=== PATIENT | male | born 1935 | race Caucasian/White ===

== ENCOUNTER 2018-08-01 10:00 | Inpatient (IN) | payer OTHER ==
[~2018-08-01] VITALS: Ht 170.2 cm; Wt 53.6 kg
[2018-08-01 10:46] LABS: ABSOLUTE BASOPHIL COUNT 0 /CUMM (0.0-0.2); ABSOLUTE EOSINOPHIL COUNT 0.3 /CUMM (0.0-0.7); ABSOLUTE GRANULOCYTE CT 2.6 /CUMM (1.4-6.5); ABSOLUTE LYMPH COUNT 0.9 /CUMM (1.2-3.4); ABSOLUTE MONOCYTE COUNT 0.5 /CUMM (0.10-0.60); BASOPHIL % 0 % (0.0-2.0); EOSINOPHIL % 6.1 % (0-5); GRANULOCYTE % 60.5 % (42.2-75.2); HEMATOCRIT 31.6 % (42-52); MEAN CORPUSCULAR HGB 26.2 PG (27.0-31.0); MEAN CORPUSCULAR HGB CONC 31.9 G/DL (33.0-37.0); MEAN CORPUSCULAR VOLUME 82.2 FL (80.0-94.0); MEAN PLATELET VOLUME 8.3 FL (7.4-10.4); PLATELET COUNT 180 /CUMM (130-400); RED BLOOD CELL CT 3.85 /CUMM (4.70-6.10); WHITE BLOOD CELL COUNT 4.3 /CUMM (4.8-10.8)
--- NOTE | 2018-08-01 11:19 | ED DYSPNEA/ASTHMA COMPLAINT ---
History of Present Illness General Chief Complaint: Dyspnea (COPD, CHF, Other) Stated Complaint: SOB Source: patient, family (DAUGHTER) Exam Limitations: no limitations Vital Signs & Intake/Output Vital Signs & Intake/Output Vital Signs Date Time Temp Pulse Resp B/P B/P Pulse O2 O2 Flow FiO2 Mean Ox Delivery Rate 08/01 1459 98/56 08/01 1409 97.0 80 20 105/72 96 Room Air 08/01 1335 78 102/57 08/01 1250 96.9 74 16 108/60 92 Room Air 08/01 1221 98.0 70 91/57 08/01 1154 76 97/51 08/01 1115 78 94/64 08/01 1003 97.1 82 20 97/62 93 Room Air Allergies Coded Allergies: NO KNOWN ALLERGIES (09/19/13) MARTÍN CANALES IN IC ON 09/19/13 - S Triage Note: PT TO TRIAGE WITH HIS DAUGHTER, PT COMPLAINS OF INCREASED SOB AND WHEEZING, PT HAS HISTORY OF ASTHMA, DENIES COUGH Triage Nurses Notes Reviewed? yes Onset: Abrupt Duration: week(s): (1), constant, continues in ED, getting worse Timing: single episode today Severity: mild, moderate Activities at Onset: none Prior Episodes/Possible Cause: occasional episodes Associated Symptoms: wheezing, weakness HPI: 83-year-old male history of hyperlipidemia, asthma, GERD, osteoporosis presents for evaluation of shortness of breath and weakness. Patient reports he has felt short of breath for the past week. He states that it is worse when he tries to exert himself to the point with difficulty walking a few steps. He does report intermittent dry cough. He's been using his inhaler and nebulizer with minimal improvement. His daughter reports it seems like he has lost weight and appears much weaker and fatigued than usual. She also reports it appears he is working hard to breathe and is to. No recent surgery recent trauma hemoptysis chest pain or extremity edema history of heart failure fever. (Timothy Lara) Past History Travel History Traveled to [place] past 21 day No Medical History Any Pertinent Medical History? see below for history Neurological: NONE EENT: NONE Cardiovascular: hyperlipidemia Respiratory: asthma Gastrointestinal: GERD Hepatic: NONE Renal: NONE Musculoskeletal: osteoporosis Psychiatric: NONE Endocrine: hypothyroidism Surgical History Surgical History: non-contributory Psychosocial History What is your primary language Greek Tobacco Use: Never used ETOH Use: denies use Illicit Drug Use: denies illicit drug use Family History Hx Contributory? No (Timotyh Lara) Review of Systems Review of Systems Constitutional: Reports: malaise, weakness. EENTM: Reports: no symptoms. Respiratory: Reports: see HPI, short of breath, wheezing. Cardiovascular: Reports: no symptoms. GI: Reports: no symptoms. Genitourinary: Reports: no symptoms. Musculoskeletal: Reports: no symptoms. Skin: Reports: no symptoms. Neurological/Psychological: Reports: no symptoms. Hematologic/Endocrine: Reports: no symptoms. Immunologic/Allergic: Reports: no symptoms. All Other Systems: Reviewed and Negative (Timothy Lara) Physical Exam Physical Exam General Appearance: well developed/nourished, no apparent distress, alert, awake , cachetic, thin Head: atraumatic, normal appearance Eyes: Bilateral: normal appearance, PERRL, EOMI. Ears, Nose, Throat: normal pharynx, normal ENT inspection, hearing grossly normal Neck: normal inspection, supple, full range of motion Respiratory: chest non-tender, no respiratory distress, quiet respiration, decreased breath sounds, wheezing (mild end expiratory) Cardiovascular: regular rate/rhythm, normal peripheral pulses Peripheral Pulses: 2+ radial (R), 2+ radial (L) Gastrointestinal: normal bowel sounds, soft, no organomegaly, tenderness ( diffuse lower abdominal) Rectal: normal exam, normal rectal tone, heme negative stool Extremities: normal inspection, normal range of motion, no edema Neurologic/Psych: no motor/sensory deficits, awake, alert, oriented x 3, normal gait, normal mood/affect Skin: intact, normal color, warm/dry Lymphatic: no anterior cervical alistair Core Measures ACS in differential dx? No CVA/TIA Diagnosis No Sepsis Present: No Sepsis Focused Exam Completed? No (Timothy Lara) Progress Differential Diagnosis: asthma, AMI, bronchitis, costochondritis, CHF, COPD, musculoskeletal pain, pericarditis, pulmonary embolism, pneumonia, pneumothorax, rib fracture, unstable angina, malignancy Plan of Care: Orders Procedure Date/time Status Heart Healthy Diet 08/01 D Active ED Holding Orders 08/01 1508 Active Admit to inpatient 08/01 1508 Active Vital Signs 08/01 1508 Active Code Status 08/01 1508 Active Add-on Test (ER Only) 08/01 1346 Active URINALYSIS 08/01 1252 Complete Add-on Test (ER Only) 08/01 1129 Active Add-on Test (ER Only) 08/01 1106 Active PARTIAL THROMBOPLASTIN TIME 08/01 1039 Complete PROTHROMBIN TIME 08/01 1039 Complete LACTIC ACID 08/01 1039 Complete D-DIMER 08/01 1039 Complete B-TYPE NATRIURETIC PEP (BNP) 08/01 1039 Complete Add-on Test (ER Only) 08/01 1027 Active TROPONIN LEVEL 08/01 1012 Complete COMPREHENSIVE METABOLIC PANEL 08/01 1012 Complete CBC WITHOUT DIFFERENTIAL 08/01 1012 Complete EKG 08/01 1012 Active Current Medications Sig/Rosita Start time Last Medication Dose Stop Time Status Admin Heparin Sodium 25,000 UNIT Q24H 08/01 1415 UNVr 08/01 (Porcine) 1502 (Heparin) Sodium Chloride 500 ML Laboratory Tests 08/01/18 1304: Urine Color YEL, Urine Clarity CLEAR, Urine pH 6.0, Ur Specific [place] 1.025, Urine Protein NEG, Urine Ketones TRACE H, Urine Nitrite NEG, Urine Bilirubin NEG, Urine Urobilinogen 0.2, Ur Leukocyte Esterase NEG, Ur Microscopic EXAM NOT REQUIRED, Urine Hemoglobin NEG, Urine Glucose NEG 08/01/18 1039: Anion Gap 8, Estimated GFR > 60, BUN/Creatinine Ratio 58.3 H, Glucose 113 H, Lactic Acid 1.2, Calcium 9.7, Total Bilirubin 0.5, AST 30, ALT 33, Alkaline Phosphatase 61, Troponin I 0.07, Obg-X-Yajdvmvagnq Pept 442 H, Total Protein 7.2, Albumin 4.1, Globulin 3.1, Albumin/Globulin Ratio 1.3, PT 12.9 H, INR 1.18 H, APTT 25, D-Dimer High Sensitivty 2040 H, CBC w Diff NO MAN DIFF REQ, RBC 3.85 L, MCV 82.2, MCH 26.2 L, MCHC 31.9 L, RDW 16.0 H, MPV 8.3, Gran % 60.5, Lymphocytes % 21.6, Monocytes % 11.8 H, Eosinophils % 6.1 H, Basophils % 0, Absolute Granulocytes 2.6, Absolute Lymphocytes 0.9 L, Absolute Monocytes 0.5, Absolute Eosinophils 0.3, Absolute Basophils 0 Patient is here for evaluation of shortness of breath and weakness. On exam his vital signs are stable. Oxygen saturation has been as low as 93 while at rest. He's never been a smoker he has a history of asthma. He has grossly diminished breath sounds bilaterally with some slight wheezing. A DuoNeb and IV Solu- Medrol was ordered. Labs chest x-ray EKG ordered. Patient also has some lower abdominal pain. Scan his abdomen and pelvis was ordered. Blood work shows a significantly elevated d-dimer of 2000. Chest x-ray shows interstitial lung disease and atelectasis but cannot exclude pneumonia. A CTA will be obtained for further evaluatION. CTA is positive for a left subsegmental and left segmental pulmonary artery EMBOLI. No evidence of right heart strain. There is also significant pulmonary fibrosis. Rectal exam is negative for blood. There is some mild rectosigmoid colitis and proctitis. Patient will be heparinized and admitted to the hospital for further evaluation and treatment case discussed with Dr. Sarabia he agrees. Diagnostic Imaging: Viewed by Me: CT Scan. Discussed w/RAD: CT Scan. Radiology Impression: PATIENT: KIERSTEN HERNANDEZ PRESENT AGE: 83 PATIENT ACCOUNT NO: [id number] : 35 LOCATION: [facility] ORDERING PHYSICIAN: Timothy MCKEON SERVICE DATE: 08/01/18 EXAM TYPE: RAD - XRY- PORTABLE CHEST XRAY EXAMINATION: XR PORTABLE CHEST CLINICAL INFORMATION: Shortness of breath. Cough. Presumptive diagnosis of pneumonia, CHF. COMPARISON: Chest x-ray dated 06/23/2018 and rib films dated 11/03/2017. TECHNIQUE: Portable AP semierect view of the chest was obtained. FINDINGS: EKG leads overlie the chest. Cardiac silhouette is poorly assessed due to patient obliquity and extensive opacities throughout the left lung. Ectasia and tortuosity of the aorta is also seen. There are low lung volumes with diffuse bilateral reticular opacities seen, suspicious for diffuse chronic interstitial lung disease. When allowing for differences in technique, increasing volume loss in the left lung base is seen with patchy opacities, most likely related to atelectasis. However, subtle pneumonia cannot be excluded. No definite pulmonary edema is seen. There is likely a tiny left apical pneumothorax. Right basilar opacities are similar to the prior exam and likely due to atelectasis or scarring. Diffuse osteopenia is noted with an S-shaped thoracolumbar scoliosis and multilevel degenerative changes. IMPRESSION: 1. Interval development of tiny left apical pneumothorax. 2. Volume loss and new patchy opacities in the left lung base, likely due to atelectasis. However, pneumonia may have a similar appearance. Clinical correlation is requested. 2. Chronic reticular opacities right lung base, likely due to atelectasis or scarring. DICTATED BY: Bridget Wyatt MD DATE/TIME DICTATED:08/01/181128 CREDIT CLERK:EDMOND DATE/TIME TRANSCRIBED:1128 CONFIDENTIAL, DO NOT COPY WITHOUT APPROPRIATE AUTHORIZATION. < Electronically signed in Other Vendor System> SIGNED BY: Bridget Wyatt MD 08/01/18 1139, PATIENT: KIERSTEN HERNANDEZ PRESENT AGE: 83 PATIENT ACCOUNT NO: [id number] : 35 LOCATION: [facility] ORDERING PHYSICIAN: Timothy MCKEON SERVICE DATE: 08/01/18 EXAM TYPE: CAT - CT ABD & PELVIS W IV CONTRAST; CTA CHEST-PULMONARY EMBOLISM EXAMINATION: CT CHEST PE STUDY CT SCAN OF THE ABDOMEN AND PELVIS WITH CONTRAST CLINICAL INFORMATION: Cough, shortness of breath, weight loss. Presumptive diagnosis of PE, pneumonia, malignancy. Lower abdominal pain and right-sided lower back pain. Presumptive diagnosis of PE, pneumonia, malignancy, acute abdomen. COMPARISON: Chest x-ray dated 08/01/2018 , 06/23/2018. MRI scan of the lumbar spine dated 01/23/2011. TECHNIQUE: Prior to contrast administration, localization images were obtained. After the administration of 95 mL of intravenous Optiray 320, multidetector CT volume acquisition of the chest was performed. 3-D postprocessing was performed with multiplanar reconstructions and MIP images obtained at the acquisition workstation under concurrent physician supervision. DLP: 595.02 mGy-cm. FINDINGS : CT PULMONARY ANGIOGRAM: Pulmonary arteries: The bolus timing on this study was acceptable for visualization of the pulmonary arterial tree. The study is positive for pulmonary embolism. Small pulmonary emboli are seen in the right upper lobe segmental pulmonary artery (series 2, image 139) and in right lower lobe subsegmental pulmonary arteries (series 2, images 145 through 250). The pulmonary arteries are not enlarged and no significant reflux of contrast into the IVC or leftward bowing of the interventricular septum is seen to suspect right heart strain. Lungs: As seen on the plain film, there is a tiny left-sided pneumothorax. There is also a tiny right-sided pneumothorax. The lungs bilaterally demonstrate diffuse subpleural reticulation and scattered areas of subpleural honeycomb cyst formation, suspicious for underlying UIP, likely idiopathic pulmonary fibrosis. No dense consolidation is seen to suspect superimposed pneumonia. No significant pleural effusion is seen. There is marked enlargement of the tracheobronchial tree with diffuse bronchiectatic changes in the right more than left central lung. Aorta and heart: The heart is normal in size and shifted to the right side. The mediastinum, aorta and great vessels are normal. There is no pericardial effusion. Lymphatic structures: There is no lymphadenopathy. Bones: Mild dorsal kyphosis centered at the T9 level where near vertebral plana compression deformity of the vertebral body is seen, unchanged. CT ABDOMEN AND PELVIS: LIVER, GALLBLADDER, BILIARY TREE: Liver normal size and attenuation. No focal cystic or solid mass or intra-or extrahepatic ductal dilatation. Hepatic and portal veins patent. Gallbladder partially distended and within normal limits. PANCREAS: Normal. No ductal dilatation, mass, or surrounding stranding. SPLEEN: Normal size and appearance. Splenic vein patent. ADRENAL GLANDS AND KIDNEYS: Adrenal glands normal. Kidneys bilaterally symmetric in size and function. No focal mass, hydronephrosis, nephrolithiasis or perinephric stranding. URETERS AND BLADDER: Ureters decompressed and within normal limits. Bladder partially distended and within normal limits. PELVIC ORGANS: Prostate gland is enlarged and heterogeneous and poorly from adjacent bowel loops. GASTROINTESTINAL TRACT: Poorly assessed due to lack of intra-abdominal fat. Bowel loops are all clustered together. Small and large bowel loops decompressed. Appendix not seen. There may be subtle thickening and enhancement of the rectosigmoid colon. Bowel loops are otherwise grossly unremarkable. LYMPHOVASCULAR STRUCTURES: Abdominal aorta ectatic and with dense atherosclerotic calcifications, which also involve several of the branch vessels. No periaortic collections. No abdominal or pelvic adenopathy or free fluid collection. BONES: Diffuse osteopenia. Mild superior endplate compression of the L2 vertebral body is seen, unchanged from 01/23/2011. Minimal convex left lumbar scoliosis. Mild degenerative disc disease at L4-5 with disc space narrowing and vacuum disc phenomenon. Mild vertebral spondylosis in lower thoracic spine. IMPRESSION: 1. Positive pulmonary emboli seen in segmental and subsegmental pulmonary arteries as discussed above. 2. 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 No definite superimposed focal pneumonia seen. 3. Evaluation of bowel loops in the abdomen difficult. There may be wall thickening and enhancement in the rectosigmoid colon. This is a nonspecific finding and may be related to a colitis. Close clinical correlation and follow-up is requested. 4. Enlarged heterogeneous prostate gland. 5. Prominent atherosclerotic vascular disease. 6. Osteopenia with compression deformities in the T9 and L2 vertebral bodies, unchanged. This critical result was discussed with MIKE Sanchez 08/01/2018, 1:45 PM and it was ascertained that the content and urgency of this report was understood at the time of direct communication. Initial ED EKG: normal sinus rhythm, RBBB (Timothy Lara) Departure Departure Disposition: STILL A PATIENT Condition: Stable Clinical Impression Primary Impression: Pulmonary embolism Qualifiers: Pulmonary embolism type: other Chronicity: acute Acute cor pulmonale presence: without acute cor pulmonale Qualified Code: I26.99 - Other pulmonary embolism without acute cor pulmonale Referrals: Antonio Lenz MD (PCP/Family) Departure Forms: Customer Survey General Discharge Information Admission Note Spoke With: Antonio Lenz MD Documentation of Exam: Documentation of any treatments & extenuating circumstances including Concerns Regarding Discharge (functional status, medication knowledge or non-compliance, living conditions, etc.) that warrant an admission rather than observation: [ Monitoring of vital signs, serial labs, pulmonology consult, IV steroids, IV heparin, hypercoagulability workup, DUO NEBS] (Timothy Lara) PA/HAT PRESSER Co-Sign Statement Statement: ED Attending supervision documentation- [X] I saw and evaluated the patient. I have also reviewed all the pertinent lab results and diagnostic results. I agree with the findings and the plan of care as documented in the PA's/HAT PRESSER's documentation. [] I have reviewed the ED Record and agree with the PA's/HAT PRESSER's documentation. [] Additions or exceptions (if any) to the PAs/HAT PRESSER's note and plan are summarized below: [] I saw and personally examined the patient and I agree with the PAs evaluation 83 -year-old male with difficulty breathing. He also had some lower abdominal pain. Lung exam revealed poor air entry. CTA reveals segmental and subsegmental pulmonary emboli. (Torey COWAN,Kerwin Forbes) Critical Care Note Critical Care Note Critical Care Time: non-applicable (Timothy Lara)
--- NOTE | 2018-08-01 11:39 | RADIOLOGY REPORT ---
EXAMINATION: XR PORTABLE CHEST CLINICAL INFORMATION: Shortness of breath. Cough. Presumptive diagnosis of pneumonia, CHF. COMPARISON: Chest x-ray dated 06/23/2018 and rib films dated 11/03/2017. TECHNIQUE: Portable AP semierect view of the chest was obtained. FINDINGS: EKG leads overlie the chest. Cardiac silhouette is poorly assessed due to patient obliquity and extensive opacities throughout the left lung. Ectasia and tortuosity of the aorta is also seen. There are low lung volumes with diffuse bilateral reticular opacities seen, suspicious for diffuse chronic interstitial lung disease. When allowing for differences in technique, increasing volume loss in the left lung base is seen with patchy opacities, most likely related to atelectasis. However, subtle pneumonia cannot be excluded. No definite pulmonary edema is seen. There is likely a tiny left apical pneumothorax. Right basilar opacities are similar to the prior exam and likely due to atelectasis or scarring. Diffuse osteopenia is noted with an S-shaped thoracolumbar scoliosis and multilevel degenerative changes. IMPRESSION: 1. Interval development of tiny left apical pneumothorax. 2. Volume loss and new patchy opacities in the left lung base, likely due to atelectasis. However, pneumonia may have a similar appearance. Clinical correlation is requested. 2. Chronic reticular opacities right lung base, likely due to atelectasis or scarring.
--- NOTE | 2018-08-01 13:50 | CT SCAN REPORT ---
EXAMINATION: CT CHEST PE STUDY CT SCAN OF THE ABDOMEN AND PELVIS WITH CONTRAST CLINICAL INFORMATION: Cough, shortness of breath, weight loss. Presumptive diagnosis of PE, pneumonia, malignancy. Lower abdominal pain and right-sided lower back pain. Presumptive diagnosis of PE, pneumonia, malignancy, acute abdomen. COMPARISON: Chest x-ray dated 08/01/2018, 06/23/2018. MRI scan of the lumbar spine dated 01/23/2011. TECHNIQUE: Prior to contrast administration, localization images were obtained. After the administration of 95 mL of intravenous Optiray 320, multidetector CT volume acquisition of the chest was performed. 3-D postprocessing was performed with multiplanar reconstructions and MIP images obtained at the acquisition workstation under concurrent physician supervision. DLP: 595.02 mGy-cm. FINDINGS: CT PULMONARY ANGIOGRAM: Pulmonary arteries: The bolus timing on this study was acceptable for visualization of the pulmonary arterial tree. The study is positive for pulmonary embolism. Small pulmonary emboli are seen in the right upper lobe segmental pulmonary artery (series 2, image 139) and in right lower lobe subsegmental pulmonary arteries (series 2, images 145 through 250). The pulmonary arteries are not enlarged and no significant reflux of contrast into the IVC or leftward bowing of the interventricular septum is seen to suspect right heart strain. Lungs: As seen on the plain film, there is a tiny left-sided pneumothorax. There is also a tiny right-sided pneumothorax. The lungs bilaterally demonstrate diffuse subpleural reticulation and scattered areas of subpleural honeycomb cyst formation, suspicious for underlying UIP, likely idiopathic pulmonary fibrosis. No dense consolidation is seen to suspect superimposed pneumonia. No significant pleural effusion is seen. There is marked enlargement of the tracheobronchial tree with diffuse bronchiectatic changes in the right more than left central lung. Aorta and heart: The heart is normal in size and shifted to the right side. The mediastinum, aorta and great vessels are normal. There is no pericardial effusion. Lymphatic structures: There is no lymphadenopathy. Bones: Mild dorsal kyphosis centered at the T9 level where near vertebral plana compression deformity of the vertebral body is seen, unchanged. CT ABDOMEN AND PELVIS: LIVER, GALLBLADDER, BILIARY TREE: Liver normal size and attenuation. No focal cystic or solid mass or intra-or extrahepatic ductal dilatation. Hepatic and portal veins patent. Gallbladder partially distended and within normal limits. PANCREAS: Normal. No ductal dilatation, mass, or surrounding stranding. SPLEEN: Normal size and appearance. Splenic vein patent. ADRENAL GLANDS AND KIDNEYS: Adrenal glands normal. Kidneys bilaterally symmetric in size and function. No focal mass, hydronephrosis, nephrolithiasis or perinephric stranding. URETERS AND BLADDER: Ureters decompressed and within normal limits. Bladder partially distended and within normal limits. PELVIC ORGANS: Prostate gland is enlarged and heterogeneous and poorly from adjacent bowel loops. GASTROINTESTINAL TRACT: Poorly assessed due to lack of intra-abdominal fat. Bowel loops are all clustered together. Small and large bowel loops decompressed. Appendix not seen. There may be subtle thickening and enhancement of the rectosigmoid colon. Bowel loops are otherwise grossly unremarkable. LYMPHOVASCULAR STRUCTURES: Abdominal aorta ectatic and with dense atherosclerotic calcifications, which also involve several of the branch vessels. No periaortic collections. No abdominal or pelvic adenopathy or free fluid collection. BONES: Diffuse osteopenia. Mild superior endplate compression of the L2 vertebral body is seen, unchanged from 01/23/2011. Minimal convex left lumbar scoliosis. Mild degenerative disc disease at L4-5 with disc space narrowing and vacuum disc phenomenon. Mild vertebral spondylosis in lower thoracic spine. IMPRESSION: 1. Positive pulmonary emboli seen in segmental and subsegmental pulmonary arteries as discussed above. 2. 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 No definite superimposed focal pneumonia seen. 3. Evaluation of bowel loops in the abdomen difficult. There may be wall thickening and enhancement in the rectosigmoid colon. This is a nonspecific finding and may be related to a colitis. Close clinical correlation and follow-up is requested. 4. Enlarged heterogeneous prostate gland. 5. Prominent atherosclerotic vascular disease. 6. Osteopenia with compression deformities in the T9 and L2 vertebral bodies, unchanged. This critical result was discussed with MIKE Sanchez 08/01/2018, 1:45 PM and it was ascertained that the content and urgency of this report was understood at the time of direct communication.
[2018-08-01 13:56] LABS: PT 12.9 SEC (9.4-12.5); PTT 25 SEC (25-37)
--- NOTE | 2018-08-01 16:08 | History & Physical ---
General Information and HPI MD Statement: I have seen and personally examined KIERSTEN HERNANDEZ and documented this H&P. The patient is a 83 year old M who presented with a patient stated chief complaint of [shortness of breath]. Source of Information: patient, family Exam Limitations: no limitations History of Present Illness: 83-year-old gentleman with past medical history of hyperlipidemia, asthma, GERD, osteoporosis, hypothyroidism came to [place] [facility] with complaints of shortness of breath on exertion for the past 1 week. According to the patient he was in usual state of health until 1 week ago, following which patient developed difficulty in breathing on exertion which worsened yesterday. He also complains of weakness for the past 1 week. Patient denies orthopnea, lower extremity swelling, palpitation, dizziness, chest pain, nausea, vomiting, abdominal pain, fall. At baseline patient uses cane at home. Patient is the quarter folder of her until a week ago. His was recently transferred to a geriatric unit. Patient is independent at home. Patient denies diabetes, cardiac, renal problems. Past surgical history-cataract and right inguinal hernia surgery Allergies-none Social history-denies smoking, alcohol, illicit drug use Allergies/Medications Allergies: Coded Allergies: NO KNOWN ALLERGIES (09/19/13) NKA PER ALLY IN IC ON 09/19/13 - S Home Med list Albuterol Sulfate (Ventolin Hfa) 90 MCG HFA.AER.AD 2 PUF INH PRN RESP. ( Reported) Calcium Carbonate/Vitamin D3 (Calcium + Vitamin D Tablet) (Unknown Strength) TABLET (Unknown Dose) PO DAILY SUPPLEMENT (Reported) Cholecalciferol (Vitamin D3) (Vitamin D) (Unknown Strength) TABLET (Unknown Dose) PO DAILY SUPPLEMENT (Reported) Levothyroxine Sodium 175 MCG TABLET 1 TAB PO DAILY HYPOTHYROID (Reported) Meloxicam 15 MG TABLET 1 TAB PO DAILY PAIN/INFLAMMATION (Reported) [place]-3S/Dha/Epa/Fish Oil (Fish Oil 1,000 MG Softgel) (Unknown Strength) CAPSULE (Unknown Dose) PO PRN SUPPLEMENT (Reported) Omeprazole 20 MG TABLET.DR 1 TAB PO DAILY GERD (Reported) Simvastatin (Simvastatin*) 20 MG TABLET 1 TAB PO QPM HLD (Reported) Tramadol HCl 50 MG TABLET 1 TAB PO PRN PAIN (Reported) Compliance With Home Meds: GOOD Past History Travel History Traveled to [place] past 21 day No Medical History Neurological: NONE EENT: NONE Cardiovascular: hyperlipidemia Respiratory: asthma Gastrointestinal: GERD Hepatic: NONE Renal: NONE Musculoskeletal: osteoporosis Psychiatric: NONE Endocrine: hypothyroidism Surgical History Surgical History: cataract removal, hernia repair-inguinal Past Family/Social History Family History Relations & Conditions if any Relation not specified for: *No pertinent family history Psychosocial History Where do you live? Home Who Do You Live With? self Services at Home: None Primary Language: Fijian ETOH Use: denies use Illicit Drug Use: denies illicit drug use Review of Systems Review of Systems Constitutional: Reports: weakness. Cardiovascular: Reports: no symptoms. Respiratory: Reports: short of breath. GI: Reports: no symptoms (EPIGASTRIC PAIN ). Musculoskeletal: Reports: back pain. Exam & Diagnostic Data Last 24 Hrs of Vital Signs/I&O Vital Signs Date Time Temp Pulse Resp B/P B/P Pulse O2 O2 Flow FiO2 Mean Ox Delivery Rate 08/01 1459 98/56 08/01 1409 97.0 80 20 105/72 96 Room Air 08/01 1335 78 102/57 08/01 1250 96.9 74 16 108/60 92 Room Air 08/01 1221 98.0 70 91/57 08/01 1154 76 97/51 08/01 1115 78 94/64 08/01 1003 97.1 82 20 97/62 93 Room Air Intake & Output 08/01 1600 08/01 0800 08/01 0000 Intake Total Output Total 75 Balance -75 Output, Urine 75 Patient 136 lb Weight Physical Exam General Appearance Alert, Oriented X3, Cooperative, No Acute Distress Cardiovascular Regular Rate, Normal S1, Normal S2, No Murmurs Lungs DEC BRATH SOUNDS B/L Abdomen Soft Last 24 Hrs of Labs/Eh: Laboratory Tests 08/01/18 1304: Urine Color YEL, Urine Clarity CLEAR, Urine pH 6.0, Ur Specific [place] 1.025, Urine Protein NEG, Urine Ketones TRACE H, Urine Nitrite NEG, Urine Bilirubin NEG, Urine Urobilinogen 0.2, Ur Leukocyte Esterase NEG, Ur Microscopic EXAM NOT REQUIRED, Urine Hemoglobin NEG, Urine Glucose NEG 08/01/18 1039: Anion Gap 8, Estimated GFR > 60, BUN/Creatinine Ratio 58.3 H, Glucose 113 H, Lactic Acid 1.2, Calcium 9.7, Total Bilirubin 0.5, AST 30, ALT 33, Alkaline Phosphatase 61, Troponin I 0.07, Xbu-L-Dcjmcugcmnw Pept 442 H, Total Protein 7.2, Albumin 4.1, Globulin 3.1, Albumin/Globulin Ratio 1.3, PT 12.9 H, INR 1.18 H, APTT 25, D-Dimer High Sensitivty 2040 H, CBC w Diff NO MAN DIFF REQ, RBC 3.85 L, MCV 82.2, MCH 26.2 L, MCHC 31.9 L, RDW 16.0 H, MPV 8.3, Gran % 60.5, Lymphocytes % 21.6, Monocytes % 11.8 H, Eosinophils % 6.1 H, Basophils % 0, Absolute Granulocytes 2.6, Absolute Lymphocytes 0.9 L, Absolute Monocytes 0.5, Absolute Eosinophils 0.3, Absolute Basophils 0 Diagnostic Data EKG Results RBBB CXR Results . Interval development of tiny left apical pneumothorax. 2. Volume loss and new patchy opacities in the left lung base, likely due to atelectasis. However, pneumonia may have a similar appearance. Clinical correlation is requested. 2. Chronic reticular opacities right lung base, likely due to atelectasis or scarring. Other Results CTA 1. Positive pulmonary emboli seen in segmental and subsegmental pulmonary arteries as discussed above. 2. 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 No definite superimposed focal pneumonia seen. 3. Evaluation of bowel loops in the abdomen difficult. There may be wall thickening and enhancement in the rectosigmoid colon. This is a nonspecific finding and may be related to a colitis. Close clinical correlation and follow-up is requested. 4. Enlarged heterogeneous prostate gland. 5. Prominent atherosclerotic vascular disease. 6. Osteopenia with compression deformities in the T9 and L2 vertebral bodies, unchanged. Assessment/Plan Assessment: 83-year-old gentleman with past medical history of hyperlipidemia, asthma, GERD, osteoporosis, hypothyroidism came to [facility] with complaints of shortness of breath on exertion for the past 1 week. Assessment and plan 1. Pulmonary embolism-patient CTA shows right upper lobe small pulmonary emboli in the segmental pulmonary artery and and subsegmental pulmonary artery in the right lower lobe. Patient was started on IV heparin by the ED. We will continue the same. Patient is saturating 91% on room air. We will order an echo to look for any right ventricular strain. 2. Osteoporosis-stable. We will order Lidoderm patch, Percocet, IV acetaminophen for pain. 3. Hypothyroidism-continue Synthyroid [dose need to be confirmed with his pharmacy] 4. Asthma-patient was using Ventolin and Symbicort. Medications need to be confirmed with the pharmacy. 5. Hyperlipidemia-patient is on simvastatin [medication dose need to be confirmed with the pharmacy. 6. GERD-continue Prilosec. As Ranked By This Provider Problem List: 1. Pulmonary embolism Qualifiers Pulmonary embolism type: other Chronicity: acute Acute cor pulmonale presence: without acute cor pulmonale Qualified Code: I26.99 - Other pulmonary embolism without acute cor pulmonale Core Measures/Misc (08/16) Acute Coronary Syndrome ACS Diagnosis: No Congestive Heart Failure Congestive Heart Failure Diagnosis No Cerebrovascular Accident CVA/TIA Diagnosis: No VTE (View Protocol) VTE Risk Factors Age>40 No Mechanical VTE Prophylaxis d/t Other No VTE Pharm Prophylaxis d/t Other Sepsis (View protocol) Sepsis Present: No If YES complete Sepsis Event Note If YES complete Sepsis Event Note
[2018-08-01] MEDS ORDERED: SIMVASTATIN20 M2 PO (16:30)
[2018-08-01] MEDS ORDERED: MELOXICAM15 M1 PO (16:30)
[2018-08-01] MEDS ORDERED: OMEPRAZOLE20 M3 PO (16:31)
[2018-08-01] MEDS ORDERED: LEVOTHYROXINE175 MCG PO (16:31)
[2018-08-01] MEDS ORDERED: TRAMADOL HCL50 M1 PO (17:14)
[2018-08-01] MEDS ORDERED: VITAMIN D1000 UNIT PO (17:16)
[2018-08-01] MEDS ORDERED: VENTOLIN HFA18 GM INH (17:16)
[2018-08-01] MEDS ORDERED: CALCIUM + VITA1 EAC1 PO (17:16)
[2018-08-01] MEDS ORDERED: FISH OIL 1,0001 EAC5 PO (17:17)
[2018-08-01 18:31] VITALS: BP 100/64
--- NOTE | 2018-08-01 20:04 | Admission Certification ---
Admission Certification Certification Statement - As attending physician, I certify that at the time of - admission, based on clinical presentation, severity of - symptoms, need for further diagnostic testing and - therapeutic interventions, and risk of adverse outcomes - without in-hospital treatment, in my clinical assessment, - this patient requires an acute hospital stay for a minimum - of two nights or longer. I have also considered psychsocial - factors such as support system, advanced age, financial - issues, cognitive issues, and failed out-patient treatments, - past re-admission history, safety of patient, and lack of - compliance as applicable. Specific rationale supporting this admission is: Shortness of breath and documented pulmonary emboli on chest CT
--- NOTE | 2018-08-01 20:08 | PN- Att Addend ---
Attending Addendum Attending Brief Note 83-year-old [place] male with several comorbidities, also dealing with a with severe dementia, was having some more difficulty breathing for the last few days, he did not want to come to the hospital but his daughter who is in the medical field came to visit them and noticed that the patient was in some respiratory distress and brought him to the emergency room where after evaluation was found to have a pulmonary emboli, patient will be admitted and treated accordingly will have pulmonary consultation to make sure we give him the right anticoagulation, patient has had some trouble with his platelets in the past. Patient also will have some ultrasound of the legs and an echocardiogram. Case was discussed with resident. Current Medications Sig/Rosita Start time Last Medication Dose Route Stop Time Status Admin Acetaminophen 1,000 MG Q6P PRN 08/01 1615 AC IV Albuterol Sulfate 2 PUF Q4 08/01 1800 AC 08/01 INH 1939 Albuterol Sulfate 3 ML ONCE ONE 08/01 1100 DC 08/01 INH 08/01 1101 1057 Apixaban 10 MG Q12H 08/01 1700 AC 08/01 PO 1938 Atorvastatin Calcium 20 MG 1700 08/01 1700 AC 08/01 PO 1734 Heparin Sodium 0 .STK-MED ONE 08/01 1507 DC (Porcine) .ROUTE Heparin Sodium 5,000 UNIT ONCE ONE 08/01 1415 DC 08/01 (Porcine) IV 08/01 1416 1415 Heparin Sodium 25,000 UNIT Q24H / 1415 DC 08/01 (Porcine) IV 1502 Sodium Chloride 500 ML Ipratropium [place] 2.5 ML ONCE ONE 08/01 1100 DC 08/01 INH 08/01 1101 1057 Levothyroxine Sodium 0.175 MG DAILY AC 08/02 0700 AC PO Lidocaine 1 PAT Q24H 08/01 1700 AC 08/01 EXT 1734 Methylprednisolone 125 MG ONCE ONE 08/01 1100 DC / IV 08/01 1101 1058 Methylprednisolone 0 .STK-MED ONE 08/01 1059 DC .ROUTE Omeprazole 0 .STK-MED ONE 08/01 1733 DC PO Omeprazole 20 MG DAILY AC 08/01 1632 AC 08/01 PO 1734 Oxycodone/ 2 TAB Q6P PRN 08/01 1615 AC Acetaminophen PO Laboratory Tests 08/01/18 1750: Troponin I 0.04 08/01/18 1304: Urine Color YEL, Urine Clarity CLEAR, Urine pH 6.0, Ur Specific [place] 1.025, Urine Protein NEG, Urine Ketones TRACE H, Urine Nitrite NEG, Urine Bilirubin NEG, Urine Urobilinogen 0.2, Ur Leukocyte Esterase NEG, Ur Microscopic EXAM NOT REQUIRED, Urine Hemoglobin NEG, Urine Glucose NEG 08/01/18 1039: Anion Gap 8, Estimated GFR > 60, BUN/Creatinine Ratio 58.3 H, Glucose 113 H, Lactic Acid 1.2, Calcium 9.7, Iron 31 L, TIBC 523 H, Ferritin 7.3 L, Total Bilirubin 0.5, AST 30, ALT 33, Alkaline Phosphatase 61, Troponin I 0.07, Pro-B- Natriuretic Pept 442 H, Total Protein 7.2, Albumin 4.1, Globulin 3.1, Albumin/ Globulin Ratio 1.3, Vitamin B12 691, 25-OH Vitamin D Total 23.6 L, Folate > 20.0 H, PT 12.9 H, INR 1.18 H, APTT 25, D-Dimer High Sensitivty 2040 H, CBC w Diff NO MAN DIFF REQ, RBC 3.85 L, MCV 82.2, MCH 26.2 L, MCHC 31.9 L, RDW 16.0 H, MPV 8.3, Gran % 60.5, Lymphocytes % 21.6, Monocytes % 11.8 H, Eosinophils % 6.1 H, Basophils % 0, Absolute Granulocytes 2.6, Absolute Lymphocytes 0.9 L, Absolute Monocytes 0.5, Absolute Eosinophils 0.3, Absolute Basophils 0, Retic Count 1.34 Vital Signs Date Time Temp Pulse Resp B/P B/P Pulse O2 O2 Flow FiO2 Mean Ox Delivery Rate 08/01 1849 98 Room Air 08/01 1831 97.6 80 28 100/64 98 08/01 1734 Room Air 08/01 1705 98.2 79 20 102/61 99 Room Air 08/01 1459 98/56 08/01 1409 97.0 80 20 105/72 96 Room Air 08/01 1335 78 102/57 08/01 1250 96.9 74 16 108/60 92 Room Air 08/01 1221 98.0 70 91/57 Intake & Output 08/01 1600 Intake Total Output Total 75 Balance -75 Output, Urine 75 Patient 136 lb Weight
[2018-08-01 22:03] VITALS: BP 90/64
[2018-08-02 06:30] VITALS: BP 98/62
[2018-08-02 07:50] LABS: ABSOLUTE BASOPHIL COUNT 0 /CUMM (0.0-0.2); ABSOLUTE EOSINOPHIL COUNT 0 /CUMM (0.0-0.7); ABSOLUTE GRANULOCYTE CT 3.7 /CUMM (1.4-6.5); ABSOLUTE LYMPH COUNT 1.1 /CUMM (1.2-3.4); ABSOLUTE MONOCYTE COUNT 0.8 /CUMM (0.10-0.60); BASOPHIL % 0 % (0.0-2.0); EOSINOPHIL % 0 % (0-5); GRANULOCYTE % 66.3 % (42.2-75.2); HEMATOCRIT 34.2 % (42-52); MEAN CORPUSCULAR HGB CONC 31.6 G/DL (33.0-37.0); MEAN CORPUSCULAR VOLUME 82.3 FL (80.0-94.0); MEAN PLATELET VOLUME 9.2 FL (7.4-10.4); PLATELET COUNT 176 /CUMM (130-400); RED BLOOD CELL CT 4.16 /CUMM (4.70-6.10); WHITE BLOOD CELL COUNT 5.6 /CUMM (4.8-10.8)
--- NOTE | 2018-08-02 09:07 | PN- Housestaff ---
Subjective Follow-up For: Pulmonary embolism, right upper lobe small segmental and subsegmental. Tele-Events Since Last Visit: No overnight events. Patient remained in sinus rhythm with heart rate 63-79 Subjective: No overnight events. Patient remained afebrile. Seen and examined this morning. He is on room air maintaining saturation 96%. Patient denied chest pain, short of breath, nausea, vomiting, chill, fever, abdominal pain dysuria. He is eating drinking orally without any complaint. Review of Systems Constitutional: Denies: chills, fever. EENTM: Reports: no symptoms. Cardiovascular: Denies: chest pain, palpitations. Respiratory: Denies: cough, short of breath, sputum production. Gastrointestinal: Denies: abdominal pain, diarrhea, nausea, vomiting. Genitourinary: Reports: no symptoms. Musculoskeletal: Reports: no symptoms. Neurological/Psychological: Reports: no symptoms. Objective Last 24 Hrs of Vital Signs/I&O Vital Signs Date Time Temp Pulse Resp B/P B/P Pulse O2 O2 Flow FiO2 Mean Ox Delivery Rate 08/02 0630 97.4 72 20 98/62 96 Room Air 08/02 0000 97 Room Air 08/01 2203 97.5 79 24 90/64 95 09/ 1849 98 Room Air / 1831 97.6 80 28 100/64 98 / 1734 Room Air / 1705 98.2 79 20 102/61 99 Room Air 09/ 1459 98/56 09/02 1409 97.0 80 20 105/72 96 Room Air / 1335 78 102/57 /02 1250 96.9 74 16 108/60 92 Room Air 08/01 1221 98.0 70 91/57 09/02 1154 76 97/51 09/02 1115 78 94/64 09/02 1003 97.1 82 20 97/62 93 Room Air Intake & Output 08/02 1600 08/02 0800 08/02 0000 Intake Total Output Total Balance Patient 112 lb Weight Weight Bed scale Measurement Method Physical Exam General Appearance: Alert, Oriented X3, Cooperative Skin Temp/Moisture Exam: Warm/Dry Sepsis Skin Exam (color): Normal for Ethnicity HEENT: Atraumatic, PERRLA, EOMI Neck: Supple Cardiovascular: Normal S1, Normal S2 Lungs: Clear to Auscultation Abdomen: Soft, No Tenderness Neurological: Normal Speech, Strength at 5/5 X4 Ext, Normal Tone Extremities: No Edema Assessment/Plan Assessment: 83 YO M with PMH of hyperlipidemia, asthma, GERD, osteoporosis, hypothyroidism came to [place] ER with complaints of shortness of breath on exertion for the past 1 week. We are seeing the patient on telemetry floor for following problems. Pulmonary embolism: -Patient was feeling short of breath on exertion for last 1 week and on admission his d-dimer was elevated to 2040. -CTA chest was done for pulmonary embolism for pulmonary embolism that was positive. Patient has right upper lobe segmental and subsegmental small PE. -Follow-up Doppler study for DVT. -Continue Eliquis 10 mg twice daily for 1 week and later on changed to 5 mg twice daily. -Patient will follow hematology as outpatient for further workup to rule out etiology of PE. -Patient remained on room air maintaining saturation above 92% of the time. He did not require any supplemental oxygen. History of hypothyroidism: -Continue levothyroxine History of GERD: -Continue omeprazole History of hyperlipidemia: -Continue atorvastatin. DVT prophylaxis: -On mechanical and on Eliquis. CODE STATUS: Full code Problem List: 1. Pulmonary embolism Pain Ratin Pain Location: NONE Pain Goal: Remain pain free Pain Plan: PAIN PATHWAY Tomorrow's Labs & Rationales: CBC/BEP
--- NOTE | 2018-08-02 13:20 | PN- Att Addend ---
Attending Addendum Attending Brief Note Patient looking and feeling better. At rest is in no respiratory distress, appetite improved. Vital signs are stable no fever. No major changes on physical. Patient has not had his leg ultrasounds to make sure there is no DVT. Patient on heparin. Will make sure pulmonary checks the patient may be able to bridge soon to an oral anticoagulation. 24 TOTALS 08/02 0000 08/01 0000 Intake Total Output Total 75 Balance -75 Output, Urine 75 Patient 112 lb Weight Weight Bed scale Measurement Method Current Medications Sig/Rosita Start time Last Medication Dose Route Stop Time Status Admin Acetaminophen 1,000 MG Q6P PRN 08/01 1615 AC IV Albuterol Sulfate 2 PUF Q4 08/01 1800 AC 08/02 INH 1100 Apixaban 10 MG Q12H 08/01 1700 AC 08/02 PO 0643 Atorvastatin Calcium 20 MG 1700 08/01 1700 AC 08/01 PO 1734 Heparin Sodium 0 .STK-MED ONE 08/01 1507 DC (Porcine) .ROUTE Heparin Sodium 5,000 UNIT ONCE ONE 08/01 1415 DC 08/01 (Porcine) IV 08/01 1416 1415 Heparin Sodium 25,000 UNIT Q24H / 1415 DC 08/01 (Porcine) IV 1502 Sodium Chloride 500 ML Levothyroxine Sodium 0.175 MG DAILY AC 08/02 0700 AC 08/02 PO 0643 Lidocaine 1 PAT Q24H 08/01 1700 AC 08/01 EXT 1734 Omeprazole 0 .STK-MED ONE 08/01 1733 DC PO Omeprazole 20 MG DAILY AC 08/01 1632 AC 08/02 PO 0643 Oxycodone/ 2 TAB Q6P PRN 08/01 1615 AC Acetaminophen PO Laboratory Tests 08/02/18 0705: Anion Gap 8, Estimated GFR > 60, BUN/Creatinine Ratio 68.0 H, CBC w Diff NO MAN DIFF REQ, RBC 4.16 L, MCV 82.3, MCH 26.0 L, MCHC 31.6 L, RDW 16.0 H, MPV 9.2 , Gran % 66.3, Lymphocytes % 18.8 L, Monocytes % 14.9 H, Eosinophils % 0, Basophils % 0, Absolute Granulocytes 3.7, Absolute Lymphocytes 1.1 L, Absolute Monocytes 0.8 H, Absolute Eosinophils 0, Absolute Basophils 0 08/01/18 1750: Troponin I 0.04 08/01/18 1304: Urine Color YEL, Urine Clarity CLEAR, Urine pH 6.0, Ur Specific [place] 1.025, Urine Protein NEG, Urine Ketones TRACE H, Urine Nitrite NEG, Urine Bilirubin NEG, Urine Urobilinogen 0.2, Ur Leukocyte Esterase NEG, Ur Microscopic EXAM NOT REQUIRED, Urine Hemoglobin NEG, Urine Glucose NEG 08/01/18 1039: Anion Gap 8, Estimated GFR > 60, BUN/Creatinine Ratio 58.3 H, Glucose 113 H, Lactic Acid 1.2, Calcium 9.7, Iron 31 L, TIBC 523 H, Ferritin 7.3 L, Total Bilirubin 0.5, AST 30, ALT 33, Alkaline Phosphatase 61, Troponin I 0.07, Pro-B- Natriuretic Pept 442 H, Total Protein 7.2, Albumin 4.1, Globulin 3.1, Albumin/ Globulin Ratio 1.3, Vitamin B12 691, 25-OH Vitamin D Total 23.6 L, Folate > 20.0 H, PT 12.9 H, INR 1.18 H, APTT 25, D-Dimer High Sensitivty 2040 H, CBC w Diff NO MAN DIFF REQ, RBC 3.85 L, MCV 82.2, MCH 26.2 L, MCHC 31.9 L, RDW 16.0 H, MPV 8.3, Gran % 60.5, Lymphocytes % 21.6, Monocytes % 11.8 H, Eosinophils % 6.1 H, Basophils % 0, Absolute Granulocytes 2.6, Absolute Lymphocytes 0.9 L, Absolute Monocytes 0.5, Absolute Eosinophils 0.3, Absolute Basophils 0, Retic Count 1.34 Vital Signs Date Time Temp Pulse Resp B/P B/P Pulse O2 O2 Flow FiO2 Mean Ox Delivery Rate 08/02 0630 97.4 72 20 98/62 96 Room Air 08/02 0000 97 Room Air 08/01 2203 97.5 79 24 90/64 95 / 1849 98 Room Air 08/01 1831 97.6 80 28 100/64 98 / 1734 Room Air 08/01 1705 98.2 79 20 102/61 99 Room Air 08/01 1459 98/56 08/01 1409 97.0 80 20 105/72 96 Room Air 08/01 1335 78 102/57 His potassium was a little elevated today we will monitor closely and treat if it is necessary.
[2018-08-02 14:10] VITALS: BP 88/66
[2018-08-02 17:17] VITALS: BP 90/64
[2018-08-02 22:04] VITALS: BP 96/56
[2018-08-03 06:29] VITALS: BP 102/64
--- NOTE | 2018-08-03 07:07 | PN- Housestaff ---
See Addendum Subjective Follow-up For: Shortness of breath times and weakness 1 week Subjective: Overnight patient was in normal sinus rhythm with heart rate range between 67- 80. Patient was seen by breakfast this morning, patient has no complaint of today, denies shortness of breath, palpitations, chest pain. Patient is stating that he is concerned that he has not had a bowel movement stool softeners. Patient is requesting to go home today. Review of Systems Constitutional: Denies: chills, diaphoresis, fever. Cardiovascular: Reports: chest pain, palpitations. Respiratory: Reports: cough, hemoptysis, short of breath. Objective Last 24 Hrs of Vital Signs/I&O Vital Signs Date Time Temp Pulse Resp B/P B/P Pulse O2 O2 Flow FiO2 Mean Ox Delivery Rate 08/03 06 97.7 77 12 102/64 92 Room Air 08/02 2204 98.3 78 20 96/56 95 08/02 1717 77 90/64 08/02 1600 Room Air 08/02 1410 98.1 77 18 88/66 93 Room Air Intake & Output 08/03 1600 08/03 0800 08/03 0000 Intake Total 200 730 Output Total 300 Balance -100 730 Intake, IV 250 Intake, Oral 200 480 Output, Urine 300 Patient 117 lb Weight Physical Exam General Appearance: Alert, Oriented X3, Cooperative, VERY THIN MALE Neck: Supple, No JVD Cardiovascular: Regular Rate, Normal S1, Normal S2, SYSTOLIC 2/6 MURMUR Lungs: Clear to Auscultation, Normal Air Movement Abdomen: Normal Bowel Sounds, Soft, No Tenderness Vascular: Normal Pulses, Pulses Symmetrical Current Medications: Current Medications Sig/Rosita Start time Last Medication Dose Route Stop Time Status Admin Acetaminophen 1,000 MG Q6P PRN 08/01 1615 AC IV Albuterol Sulfate 2 PUF Q4 08/01 1800 AC 08/03 INH 0914 Apixaban 10 MG Q12H 08/01 1700 AC 08/03 PO 0553 Atorvastatin Calcium 20 MG 1700 08/01 1700 AC 08/02 PO 1731 Levothyroxine Sodium 0.175 MG DAILY AC 08/02 0700 AC 08/03 PO 0553 Lidocaine 1 PAT Q24H 08/01 1700 AC 08/01 EXT 1734 Omeprazole 20 MG DAILY AC 08/01 1632 AC 08/03 PO 0553 Oxycodone/ 2 TAB Q6P PRN 08/01 1615 DC Acetaminophen PO Senna/Docusate Sodium 2 TAB DAILY 08/03 0900 AC 08/03 PO 0910 Sodium Chloride 250 ML BOLUS ONE 08/02 1445 DC 08/02 IV 08/02 1544 1547 Tramadol HCl 50 MG Q6P PRN 08/02 1630 AC PO Last 24 Hrs of Lab/Eh Results Last 24 Hrs of Labs/Mics: Laboratory Tests 08/03/18 0615: Anion Gap 4 L, Estimated GFR > 60, BUN/Creatinine Ratio 36.7 H, CBC w Diff MAN DIFF ORDERED, RBC 3.81 L, MCV 82.2, MCH 25.9 L, MCHC 31.5 L, RDW 15.8 H, MPV 8.7, Gran % 57.8, Lymphocytes % 29.7, Monocytes % 7.9, Eosinophils % 4.6, Basophils % 0, Absolute Granulocytes 3.0, Segmented Neutrophils 55, Band Neutrophils 11 H, Absolute Lymphocytes 1.5, Lymphocytes 20 L, Monocytes 11 H, Absolute Monocytes 0.4, Eosinophils 3, Absolute Eosinophils 0.2, Absolute Basophils 0, Platelet Estimate VERIFIED BY SMEAR, Normocytic RBCs VERIFIED, Normochromic RBCs VERIFIED 08/02/18 1425: Anion Gap 3 L, Estimated GFR > 60, BUN/Creatinine Ratio 51.7 H Assessment/Plan Assessment: 83 YO M with PMH of hyperlipidemia, asthma, GERD, osteoporosis, hypothyroidism came to [place] ER with complaints of shortness of breath on exertion for the past 1 week. We are seeing the patient on telemetry floor for following problems. Pulmonary embolism: -Patient was feeling short of breath on exertion for last 1 week and on admission his d-dimer was elevated to 2040. CTA chest 08/01/18 was positive for right upper lobe segmental and subsegmental small PE. -Follow-up Doppler study for DVT. -Continue Eliquis 10 mg twice daily for 1 week and later on changed to 5 mg twice daily. -Patient will follow hematology as outpatient for further workup to rule out etiology of PE. -Patient remained on room air maintaining saturation above 92% of the time. He did not require any supplemental oxygen. History of hypothyroidism: -Continue levothyroxine History of GERD: -Continue omeprazole History of hyperlipidemia: -Continue atorvastatin. DVT prophylaxis: ALPS & Eliquis. CODE STATUS: Full code Plan discharge patient today pending lower extremity Doppler and physical therapy recommendations. Will be discharged with Eliquis 10 mg twice daily until August 08 2018, will then transition to Eliquis 5 mg twice daily. Will give patient referral for hematology for coagulation workup. Problem List: 1. Pulmonary embolism Pain Ratin Pain Location: n/a Pain Goal: Remain pain free Pain Plan: tylenol Tomorrow's Labs & Rationales: none
[2018-08-03 08:01] LABS: ABSOLUTE BASOPHIL COUNT 0 /CUMM (0.0-0.2); ABSOLUTE EOSINOPHIL COUNT 0.2 /CUMM (0.0-0.7); ABSOLUTE LYMPH COUNT 1.5 /CUMM (1.2-3.4); ABSOLUTE MONOCYTE COUNT 0.4 /CUMM (0.10-0.60); BASOPHIL % 0 % (0.0-2.0); EOSINOPHIL % 4.6 % (0-5); GRANULOCYTE % 57.8 % (42.2-75.2); HEMATOCRIT 31.4 % (42-52); MEAN CORPUSCULAR HGB 25.9 PG (27.0-31.0); MEAN CORPUSCULAR HGB CONC 31.5 G/DL (33.0-37.0); MEAN CORPUSCULAR VOLUME 82.2 FL (80.0-94.0); MEAN PLATELET VOLUME 8.7 FL (7.4-10.4); PLATELET COUNT 195 /CUMM (130-400); RBC DISTRIBUTION WIDTH 15.8 % (11.5-14.5); RED BLOOD CELL CT 3.81 /CUMM (4.70-6.10); WHITE BLOOD CELL COUNT 5.1 /CUMM (4.8-10.8)
--- NOTE | 2018-08-03 09:47 | PN- Att Addend ---
Attending Addendum Attending Brief Note No new complaints. Patient getting up to go to the bathroom. Not short of breath. Vital signs are stable no fever. No major changes on physical. Patient on p.o. anticoagulation. Will have a PT evaluation and depending on that we will start disposition plans,Also check leg US. Intake & Output 08/03 1600 08/03 0400 08/02 1600 08/02 0400 08/01 1600 08/01 0400 Intake Total 200 730 680 Output Total 300 75 Balance -100 730 680 -75 Intake, IV 250 Intake, Oral 200 480 680 Output, Urine 300 75 Patient 117 lb 112 lb 136 lb Weight Weight Bed scale Measurement Method Current Medications Sig/Rosita Start time Last Medication Dose Route Stop Time Status Admin Acetaminophen 1,000 MG Q6P PRN 08/01 1615 AC IV Albuterol Sulfate 2 PUF Q4 08/01 1800 AC 08/03 INH 0914 Apixaban 10 MG Q12H 08/01 1700 AC 08/03 PO 0553 Atorvastatin Calcium 20 MG 1700 08/01 1700 AC 08/02 PO 1731 Levothyroxine Sodium 0.175 MG DAILY AC 08/02 0700 AC 08/03 PO 0553 Lidocaine 1 PAT Q24H 08/01 1700 AC 08/01 EXT 1734 Omeprazole 20 MG DAILY AC 08/01 1632 AC 08/03 PO 0553 Oxycodone/ 2 TAB Q6P PRN 08/01 1615 DC Acetaminophen PO Senna/Docusate Sodium 2 TAB DAILY 08/03 0900 AC 08/03 PO 0910 Sodium Chloride 250 ML BOLUS ONE 08/02 1445 DC 08/02 IV 08/02 1544 1547 Tramadol HCl 50 MG Q6P PRN 08/02 1630 AC PO Laboratory Tests 08/03/18 0615: Anion Gap 4 L, Estimated GFR > 60, BUN/Creatinine Ratio 36.7 H, CBC w Diff MAN DIFF ORDERED, RBC 3.81 L, MCV 82.2, MCH 25.9 L, MCHC 31.5 L, RDW 15.8 H, MPV 8.7, Gran % 57.8, Lymphocytes % 29.7, Monocytes % 7.9, Eosinophils % 4.6, Basophils % 0, Absolute Granulocytes 3.0, Segmented Neutrophils 55, Band Neutrophils 11 H, Absolute Lymphocytes 1.5, Lymphocytes 20 L, Monocytes 11 H, Absolute Monocytes 0.4, Eosinophils 3, Absolute Eosinophils 0.2, Absolute Basophils 0, Platelet Estimate VERIFIED BY SMEAR, Normocytic RBCs VERIFIED, Normochromic RBCs VERIFIED 08/02/18 1425: Anion Gap 3 L, Estimated GFR > 60, BUN/Creatinine Ratio 51.7 H 08/02/18 0705: Anion Gap 8, Estimated GFR > 60, BUN/Creatinine Ratio 68.0 H, CBC w Diff NO MAN DIFF REQ, RBC 4.16 L, MCV 82.3, MCH 26.0 L, MCHC 31.6 L, RDW 16.0 H, MPV 9.2 , Gran % 66.3, Lymphocytes % 18.8 L, Monocytes % 14.9 H, Eosinophils % 0, Basophils % 0, Absolute Granulocytes 3.7, Absolute Lymphocytes 1.1 L, Absolute Monocytes 0.8 H, Absolute Eosinophils 0, Absolute Basophils 0 08/01/18 1750: Troponin I 0.04 08/01/18 1304: Urine Color YEL, Urine Clarity CLEAR, Urine pH 6.0, Ur Specific Benton 1.025, Urine Protein NEG, Urine Ketones TRACE H, Urine Nitrite NEG, Urine Bilirubin NEG, Urine Urobilinogen 0.2, Ur Leukocyte Esterase NEG, Ur Microscopic EXAM NOT REQUIRED, Urine Hemoglobin NEG, Urine Glucose NEG 08/01/18 1039: Anion Gap 8, Estimated GFR > 60, BUN/Creatinine Ratio 58.3 H, Glucose 113 H, Lactic Acid 1.2, Calcium 9.7, Iron 31 L, TIBC 523 H, Ferritin 7.3 L, Total Bilirubin 0.5, AST 30, ALT 33, Alkaline Phosphatase 61, Troponin I 0.07, Pro-B- Natriuretic Pept 442 H, Total Protein 7.2, Albumin 4.1, Globulin 3.1, Albumin/ Globulin Ratio 1.3, Vitamin B12 691, 25-OH Vitamin D Total 23.6 L, Folate > 20.0 H, PT 12.9 H, INR 1.18 H, APTT 25, D-Dimer High Sensitivty 2040 H, CBC w Diff NO MAN DIFF REQ, RBC 3.85 L, MCV 82.2, MCH 26.2 L, MCHC 31.9 L, RDW 16.0 H, MPV 8.3, Gran % 60.5, Lymphocytes % 21.6, Monocytes % 11.8 H, Eosinophils % 6.1 H, Basophils % 0, Absolute Granulocytes 2.6, Absolute Lymphocytes 0.9 L, Absolute Monocytes 0.5, Absolute Eosinophils 0.3, Absolute Basophils 0, Retic Count 1.34 Vital Signs Date Time Temp Pulse Resp B/P B/P Pulse O2 O2 Flow FiO2 Mean Ox Delivery Rate 08/03 0800 Room Air 08/03 0629 97.7 77 12 102/64 92 Room Air 08/02 2204 98.3 78 20 96/56 95 08/02 1717 77 90/64 08/02 1600 Room Air 08/02 1410 98.1 77 18 88/66 93 Room Air
--- NOTE | 2018-08-03 11:36 | ULTRASOUND REPORT ---
EXAMINATION: US TRIPLEX OF LOWER EXTREMITIES, BILATERAL CLINICAL INFORMATION: Shortness of breath, DVT. COMPARISON: None TECHNIQUE: Color-flow triplex imaging with spectral analysis and compression Doppler were performed on the lower extremities. FINDINGS: Respiratory variation, normal compression and augmented flow are noted throughout the lower extremities. The visualized common femoral vein, superficial femoral vein, profunda femoral vein, popliteal vein and midcalf peroneal and posterior tibial venous segments show no evidence of deep venous thrombosis. There is no Meyer's cyst. IMPRESSION: No evidence of deep venous thrombosis involving the bilateral lower extremities.
[2018-08-03 14:10] VITALS: BP 100/62
[2018-08-03] MEDS ORDERED: ELIQUIS5 M1 PO ×2 (14:36→17:02)
--- NOTE | 2018-08-03 14:40 | Patient Discharge Instructions ---
Discharge Instructions General Discharge Information You were seen/treated for: Pulmonary embolism Watch for these problems: Fever, chest pain, shortness of breath Special Instructions: Please take Eliquis as directed. Take 20 mg once daily until 08/06/2018. Beginning 08/07/2018 please take 10 mg daily. Follow-up with PCP, [facility]. Diet Continue normal diet: Yes Recommended Diet: Regular Activity Full Activity/No Limits: Yes Acute Coronary Syndrome Inclusion Criteria At DC or during hospital stay patient has or had the following: ACS DIAGNOSIS No Discharge Core Measures Meds if any: Prescribed or Continued at Discharge Meds if any: NOT Prescribed or Continued at Discharge Congestive Heart Failure Inclusion Criteria At DC or during hospital stay patient has or had the following: CHF DIAGNOSIS No Discharge Core Measures Meds if any: Prescribed or Continued at Discharge Meds if any: NOT Prescribed or Continued at Discharge Cerebrovascular accident Inclusion Criteria At DC or during hospital stay patient has or had the following: CVA/TIA Diagnosis No Discharge Core Measures Meds if any: Prescribed or Continued at Discharge Meds if any: NOT Prescribed or Continued at Discharge Venous thromboembolism Inclusion Criteria VTE Diagnosis Yes VTE Type Pulmonary Embolism VTE Confirmed by (Test) CT CHEST ANGIOGRAM Discharge Core Measures - Per Current guidelines, there needs to be overlap - treatment for the first 5 days of Warfarin therapy. - If discharged on Warfarin prior to 5 days of - overlap therapy, the patient will need to be - assessed for post discharge needs including - *Post discharge parental anticoagulation - *Warfarin and/or parental anticoagulation education - *Follow up date to check INR post discharge At least 5 days overlap therapy as Inpatient No Why was Parental Med stopped Sent Home on overlap ther Meds if any: Prescribed or Continued at Discharge Note: Overlap Therapy is Warfarin and Anticoagulant Meds if any: NOT Prescribed or Continued at Discharge
--- NOTE | 2018-08-03 15:06 | ECHOCARDIOGRAM REPORT ---
KIERSTEN HERNANDEZ Age: 83 : 1935 Gender: M Exam Date: 08/03/2018 11:27 Exam Location: [address] Ht (in): 66 Wt (lb): 136 BSA: 1.70 BP: 102 / 64 Ordering Physician: Roxy Coronel MD Referring Physician: Roxy Coronel MD Technologist: Timothy Christensen [facility] Room Number: 189-1 Indications: Acute pulmonary embolism Rhythm: Sinus Technical Quality: Fair, Technically difficult study FINDINGS Left Ventricle Normal size left ventricle. No obvious regional wall motion abnormalities. Normal left ventricular ejection fraction estimated at 60-65%. Right Ventricle Right ventricle not well visualized, grossly normal. Right Atrium Normal right atrial size. Left Atrium Left atrial size at the upper limits of normal. Mitral Valve Mitral valve thickened. Aortic Valve Trileaflet aortic valve. Trileaflet aortic valve. No aortic stenosis. No aortic regurgitation. Tricuspid Valve Tricuspid valve not well visualized, grossly normal. Mild tricuspid regurgitation. Pulmonic Valve Pulmonic valve not well visualized, grossly normal. Pericardium No pericardial effusion. Great Vessels Aortic root and proximal ascending aorta not well visualized, grossly normal. CONCLUSIONS 1. This was a technically difficult and limited examination 2. Aortic sclerosis is present with no valvular stenosis or insufficiency 3. Mitral leaflet thickening is present with minimal mitral insufficiency. Redundant chordal structures are present with chordal PADMA but no evidence of outflow tract obstruction at rest. 4. There is no significant pericardial fluid present. 5. The left ventricular chamber size and systolic function are normal 6. The right heart structures were not optimally visualized. Minimal to mild tricuspid insufficiency is present. The RV systolic pressure was not accurately assessed. 7. The descending thoracic aorta is quite prominent with evidence of atheromatous plaque present. Further evaluation is suggested if clinically indicated Efra Gonzalez M.D. (Electronically Signed) Final Date: 03 August 2018 15:05 MEASUREMENTS (Male / Female) Normal Values 2D ECHO LVOT Diameter 1.7 cm Aortic Root Diameter 3.3 cm DOPPLER AV Peak Velocity 103.0 cm/s AV Peak Gradient 4.2 mmHg AV Mean Velocity 75.6 cm/s AV Mean Gradient 3.0 mmHg AV Velocity Time Integral 22.5 cm LVOT Peak Velocity 96.3 cm/s LVOT Peak Gradient 3.7 mmHg LVOT Mean Velocity 60.3 cm/s LVOT Mean Gradient 2.0 mmHg LVOT Velocity Time Integral 26.3 cm LVOT Stroke Volume 59.7 cm AV Area Cont Eq vti 2.7 cm AV Area Cont Eq pk 2.1 cm MV Peak Velocity 103.0 cm/s MV Peak Gradient 4.2 mmHg MV Mean Velocity 48.0 cm/s MV Mean Gradient 1.0 mmHg Mitral E Point Velocity 40.0 cm/s Mitral A Point Velocity 80.0 cm/s Mitral E to A Ratio 0.5 MV PHT Velocity 59.7 cm/s MV Deceleration Yolo 215.0 cm/s MV Pressure Half Time 83.3 ms MV Area PHT 2.6 cm MV Deceleration Time 352.0 ms PV Peak Velocity 70.3 cm/s PV Peak Gradient 2.0 mmHg PV Mean Velocity 50.8 cm/s PV Mean Gradient 1.0 mmHg PV Velocity Time Integral 16.7 cm LV E' Lateral Velocity 6.8 cm/s Mitral E to LV E' Lateral Ratio 5.9 LV E' Septal Velocity 4.2 cm/s Mitral E to LV E' Septal Ratio 9.5
--- NOTE | 2018-08-03 17:02 | Discharge Summary ---
Visit Information Visit Dates Admission Date: 08/01/18 Discharge Date: 08/04/2018 Hospital Course Course Attending Physician: Antonio Lenz MD Primary Care Physician: Antonio Lenz MD Hospital Course: 83-year-old gentleman with past medical history of hyperlipidemia, asthma, GERD, osteoporosis, hypothyroidism came to [facility] with complaints of shortness of breath on exertion for the past 1 week. According to the patient he was in usual state of health until 1 week ago, following which patient developed difficulty in breathing on exertion which worsened the day before admission. He also complained of weakness for the past 1 week which has been getting worse. On admission the patient was found to have pulmonary embolism without evidence of deep vein thrombosis. Pulmonary embolism Patient presented with shortness of breath mostly on exertion and initial imaging on presentation showed pulmonary embolism. He had no evidence of deep vein thrombosis. There was no event preceding the embolism to correlate provoked. The patient was started on anticoagulation with Eliquis at 10 mg twice a day for 1 week after which we will transition to 5 mg twice a day. Malnutrition The patient was found to be very cachectic and had a low BMI. This patient has been taking care of his who is demented and is apparent that is not getting requiring nutritions. The cause of the stay the patient was eating very well and finishing his meals without any problems. We are organizing so that he can have meals on wheels upon discharge from correction facility. Chronic conditions hyperlipidemia/asthma/hypothyroidism These conditions remained stable during the course of the stay. Continue receiving his home medications atorvastatin 20 mg daily levothyroxine 0.175 mg. Patient is being discharged to continue with his home medications. Complications: None Allergies: Coded Allergies: NO KNOWN ALLERGIES (09/19/13) MARTÍN CANALES IN ON 09/19/13 - [facility] Significant Procedures: Echocardiogram: Normal size left ventricle. No obvious regional wall motion abnormalities. Normal left ventricular ejection fraction estimated at 60-65%. Disposition Summary Disposition Principal Diagnosis: Pulmonary embolism Malnutrition Additional Diagnosis: Hypothyroidism Hayperlipidemia Asthma Discharge Disposition: SNF Discharge Instructions General Discharge Information Code Status: Full Code Patient's Diet: Heart health diet Patient's Activity: As tolerated Follow-Up Instructions/Appts: Please call and make a follow-up with her primary care physician within 1 week after discharge will need a workup for occult malignancy as possible reason for development of pulmonary embolism. Medications at Discharge Discharge Medications: Continue taking these medications: Simvastatin (Simvastatin*) 20 MG TABLET 1 Tablet ORAL Every night Comments: Last Taken: 08/03/18 Time: 16:20 Meloxicam (Meloxicam) 15 MG TABLET 1 Tablet ORAL DAILY Comments: NOT GIVEN IN HOSPITAL. Levothyroxine Sodium (Levothyroxine Sodium) 175 MCG TABLET 1 Tablet ORAL DAILY Comments: Last Taken: 08/04/18 Time: 05:24 AM Omeprazole (Omeprazole) 20 MG TABLET.DR 1 Tablet ORAL DAILY Comments: Last Taken: 08/04/18 Time: 05:24 AM Tramadol HCl (Tramadol HCl) 50 MG TABLET 1 Tablet ORAL as needed for PAIN Comments: Last Taken: 08/04/18 Time: 08:18 AM Calcium Carbonate/Vitamin D3 (Calcium + Vitamin D Tablet) (Unknown Strength) TABLET Unknown Dose ORAL DAILY Comments: NOT GIVEN IN HOSPITAL. Cholecalciferol (Vitamin D3) (Vitamin D) (Unknown Strength) TABLET Unknown Dose ORAL DAILY Comments: NOT GIVEN IN HOSPITAL. Albuterol Sulfate (Ventolin Hfa) 90 MCG HFA.AER.AD 2 Puff Inhale through mouth as needed for RESP. Comments: Last Taken: 08/04/18 Time: 09:55 AM [place]-3S/Dha/Epa/Fish Oil (Fish Oil 1,000 MG Softgel) (Unknown Strength) CAPSULE Unknown Dose ORAL as needed for SUPPLEMENT Comments: NOT GIVEN IN HOSPITAL. Start taking the following new medications: Apixaban (Eliquis) 5 MG TABLET 10 Milligram ORAL Q12H Qty = 50 No Refills Instructions: PLEASE TAKE 10MG TWICE A DAY UNTIL 08/06/18. BEGINNING 08/07/18 PLEASE TAKE 5MG TWICE A DAY. Comments: Last Taken: 08/04/18 Time: 05:23 AM Copies To: Yoanna MCCOLLUM,Antonio
[2018-08-03 20:35] VITALS: BP 82/60
[2018-08-03 21:46] VITALS: BP 78/50
[2018-08-04 06:56] VITALS: BP 98/59
--- NOTE | 2018-08-04 07:49 | PN- Housestaff ---
Subjective Follow-up For: Pulmonary embolism Subjective: Overnight patient was in normal sinus rhythm heart rate ranging between 7488. Patient has no complaint of this morning. Patient is a little upset about having to go to rehab, would prefer to go home. Has no medical complaints at this time, denies chest pain, palpitations, shortness of breath. Patient states he has been working with physical therapy, states he continues to feel weak however. Review of Systems Constitutional: Denies: chills, diaphoresis, fever. Cardiovascular: Denies: chest pain, palpitations. Respiratory: Denies: cough, short of breath. Objective Last 24 Hrs of Vital Signs/I&O Vital Signs Date Time Temp Pulse Resp B/P B/P Pulse O2 O2 Flow FiO2 Mean Ox Delivery Rate 08/04 0656 95.9 84 20 98/59 98 Room Air 08/04 0000 95 Room Air 08/03 2243 97.6 92 16 95 Room Air 08/03 2146 86 78/50 08/03 2035 91 82/60 08/03 1600 Room Air 08/03 1558 Room Air 08/03 1410 97.8 86 22 100/62 95 Room Air Intake & Output 08/04 1600 05 0800 08/04 0000 Intake Total 620 400 Output Total 225 Balance 395 400 Intake, IV 500 Intake, Oral 120 400 Number 0 0 Bowel Movements Output, Urine 225 Patient 118 lb Weight Weight Bed scale Measurement Method Physical Exam General Appearance: Alert, Oriented X3, Cooperative Cardiovascular: Regular Rate, Normal S1, Normal S2 Lungs: Clear to Auscultation, Normal Air Movement Abdomen: Normal Bowel Sounds, Soft, No Tenderness Assessment/Plan Assessment: 83 YO M with PMH of hyperlipidemia, asthma, GERD, osteoporosis, hypothyroidism came to [facility] with complaints of shortness of breath on exertion for the past 1 week. We are seeing the patient on telemetry floor for following problems. #Pulmonary embolism: Patient was feeling short of breath on exertion for last 1 week and on admission his d-dimer was elevated to 2040. CTA chest 08/01/18 was positive for right upper lobe segmental and subsegmental small PE. -Bilateral lower extremity Doppler negative for DVT -Continue Eliquis 10 mg twice daily for until August 06 and then will be changed to 5 mg twice daily beginning aug 07. -Patient will follow hematology as outpatient for further workup to rule out etiology of PE. -Patient remained on room air maintaining saturation above 92% of the time. He did not require any supplemental oxygen. #Cachexia: BMI 18.3. During the admission patient is completely eating full meals, but at home he may be having difficulty with getting sufficient nutrition as he has to care for his who has dementia, and for himself. patient. History of hypothyroidism: -Continue levothyroxine History of GERD: -Continue omeprazole History of hyperlipidemia: -Continue atorvastatin. DVT prophylaxis: ALPS & Eliquis. CODE STATUS: Full code Plan discharge patient today pending lower extremity Doppler and physical therapy recommendations. Will be discharged with Eliquis 10 mg twice daily until August 08 2018, will then transition to Eliquis 5 mg twice daily. Will give patient referral for hematology for coagulation workup. History of hypothyroidism: -Continue levothyroxine History of GERD: -Continue omeprazole History of hyperlipidemia: -Continue atorvastatin. DVT prophylaxis: ALPS & Eliquis. CODE STATUS: Full code Plan discharge patient today pending lower extremity Doppler and physical therapy recommendations. Will be discharged with Eliquis 10 mg twice daily until August 08 2018, will then transition to Eliquis 5 mg twice daily. Will give patient referral for hematology for coagulation workup. Problem List: 1. Pulmonary embolism Pain Ratin Pain Location: n/.a Pain Goal: Remain pain free Pain Plan: tylenol Tomorrow's Labs & Rationales: none
[2018-08-04 12:06] VITALS: BP 98/59
[2018-08-04 13:50] VITALS: BP 90/62
--- NOTE | 2018-08-04 16:20 | PN- Att Addend ---
Attending Addendum Attending Brief Note No major issues. Patient still weak Vital signs are stable no fever. No major changes on physical examination. Patient on oral anticoagulation. Patient will be going to short-term rehabilitation later on today I will follow him over there see the discharge summary in CM Intake & Output 08/04 1600 08/04 0400 08/03 1600 08/03 0400 08/02 1600 08/02 0400 Intake Total 620 400 700 730 680 Output Total 225 400 Balance 395 400 300 730 680 Intake, IV 500 250 Intake, Oral 120 400 700 480 680 Number 0 0 Bowel Movements Output, Urine 225 400 Patient 118 lb 118 lb 117 lb 112 lb Weight Weight Bed scale Bed scale Measurement Method Current Medications Sig/Rosita Start time Last Medication Dose Route Stop Time Status Admin Acetaminophen 1,000 MG Q6P PRN 08/01 1615 DCD IV Albuterol Sulfate 2 PUF Q4 08/01 1800 DCD 08/04 INH 0955 Apixaban 10 MG Q12H 08/01 1700 DCD 08/04 PO 0523 Atorvastatin Calcium 20 MG 1700 08/01 1700 DCD 08/03 PO 1620 Bisacodyl 10 MG ONCE ONE 08/04 1115 DC 08/04 NE 08/04 1116 1120 Levothyroxine Sodium 0.175 MG DAILY AC 08/02 0700 DCD 08/04 PO 0524 Lidocaine 1 PAT Q24H 08/01 1700 DCD 08/03 EXT 1621 Omeprazole 20 MG DAILY AC 08/01 1632 DCD 08/04 PO 0524 Polyethylene Glycol 17 GM DAILY 08/03 1821 DCD 08/04 PO 0818 Senna/Docusate Sodium 2 TAB DAILY 08/03 0900 DCD 08/04 PO 0818 Sodium Chloride 500 ML BOLUS ONE 08/03 2230 DC 08/03 IV 08/03 2329 2309 Tramadol HCl 50 MG Q6P PRN 08/02 1630 DCD 08/04 PO 0818 Laboratory Tests 08/03/18 0615: Anion Gap 4 L, Estimated GFR > 60, BUN/Creatinine Ratio 36.7 H, CBC w Diff MAN DIFF ORDERED, RBC 3.81 L, MCV 82.2, MCH 25.9 L, MCHC 31.5 L, RDW 15.8 H, MPV 8.7, Gran % 57.8, Lymphocytes % 29.7, Monocytes % 7.9, Eosinophils % 4.6, Basophils % 0, Absolute Granulocytes 3.0, Segmented Neutrophils 55, Band Neutrophils 11 H, Absolute Lymphocytes 1.5, Lymphocytes 20 L, Monocytes 11 H, Absolute Monocytes 0.4, Eosinophils 3, Absolute Eosinophils 0.2, Absolute Basophils 0, Platelet Estimate VERIFIED BY SMEAR, Normocytic RBCs VERIFIED, Normochromic RBCs VERIFIED 08/02/18 1425: Anion Gap 3 L, Estimated GFR > 60, BUN/Creatinine Ratio 51.7 H 08/02/18 0705: Anion Gap 8, Estimated GFR > 60, BUN/Creatinine Ratio 68.0 H, CBC w Diff NO MAN DIFF REQ, RBC 4.16 L, MCV 82.3, MCH 26.0 L, MCHC 31.6 L, RDW 16.0 H, MPV 9.2 , Gran % 66.3, Lymphocytes % 18.8 L, Monocytes % 14.9 H, Eosinophils % 0, Basophils % 0, Absolute Granulocytes 3.7, Absolute Lymphocytes 1.1 L, Absolute Monocytes 0.8 H, Absolute Eosinophils 0, Absolute Basophils 0 08/01/18 1750: Troponin I 0.04 Vital Signs Date Time Temp Pulse Resp B/P B/P Pulse O2 O2 Flow FiO2 Mean Ox Delivery Rate 08/04 1350 97.1 77 20 90/62 97 Room Air 08/04 1206 95.9 84 20 98/59 08/04 0656 95.9 84 20 98/59 98 Room Air 08/04 0000 95 Room Air 08/03 2243 97.6 92 16 95 Room Air 08/03 2146 86 78/50 08/03 2035 91 82/60
== END 2018-08-04 15:45 | DRG 176 ==
LOC: ERH 10:00 → 1NO 15:08 → ERHI 15:08 → ENRESERV 16:54 → ENTRNSPT 17:40 → EDTRNSPTSTS 17:59 → 1NO 18:10 → CMPTRNSPT 18:19 → ENPENDDIS 08-04 10:38 → 1NO 08-04 15:45
PROVIDERS: Physician Assistant Medical; Student in an Organized Health Care Education/Training Program
DX: I26.99 Other pulmonary embolism without acute cor pulmonale (principal); E44.1 Mild protein-calorie malnutrition; Z68.1 Body mass index [BMI] 19.9 or less, adult; R64 Cachexia; E78.5 Hyperlipidemia, unspecified; J45.909 Unspecified asthma, uncomplicated; M81.0 Age-related osteoporosis without current pathological fracture; K21.9 Gastro-esophageal reflux disease without esophagitis; E03.9 Hypothyroidism, unspecified; J84.10 Pulmonary fibrosis, unspecified; I45.10 Unspecified right bundle-branch block; Z98.49 Cataract extraction status, unspecified eye; Z79.51 Long term (current) use of inhaled steroids
CPT/HCPCS: 1NSP; 36415; 36592; 71045; 74177; 81003; 82436; 93005; 93010; 93306; 93970; 96374; 96375; 96376; 97116-GO; 97161-GP; 97530-GO; J0131; J1644; J2930; J3490; J7040